=== PATIENT | male | born 1980 | race Caucasian/White ===

== ENCOUNTER 2020-09-24 09:58 | Emergency (ER) | payer OTHER ==
[2020-09-24 10:47] LABS: BASOPHIL 0.5 % (0-2); EOSINOPHIL 2.9 % (0-5); HCT 40.7 % (42.0-52.0); HGB 14.3 g/dl (13.2-18.0); LYMPHOCYTE 28.3 % (15-48); MCH 36.4 pg (25.0-31.0); MCHC 35.1 g/dL (32.0-36.0); MCV 103.6 fL (78.0-100.0); MONOCYTE 8.1 % (0-12); MPV 10.2 fL (6.0-9.5); NRBC 0; PLT 267 K/uL (150-400); RBC 3.93 M/uL (4.70-6.00); RDW 12.2 % (11.5-14.0); WBC 8.1 K/uL (4.0-10.5)
[2020-09-24 10:52] LABS: INR 1.05 (0.9-1.2); PTT 25.6 SECONDS (22.2-34.7)
[2020-09-24 10:53] LABS: ALBUMIN 4.2 g/dL (3.4-5.0); BILIRUBIN - TOTAL 0.7 mg/dL (0.2-1.0); BUN/CREAT RATIO (CALC) 18.5 RATIO; CREATININE 0.81 mg/dL (0.67-1.17); POTASSIUM 4.2 mmol/L (3.5-5.1); TOTAL PROTEIN 7.2 g/dL (6.4-8.2)
[2020-09-24] MEDS ORDERED: NAPROXEN500 MG PO (11:29)
== END 2020-09-24 11:40 | disposition home or self-care (01) ==
LOC: FER 09:58
PROVIDERS: Emergency Medicine
DX: R07.89 Other chest pain (principal); F17.210 Nicotine dependence, cigarettes, uncomplicated
CPT/HCPCS: 36415; 71045; 80053; 84484; 85025; 85610; 85730; 93005

== ENCOUNTER 2022-01-06 09:47 | Emergency (ER) | payer OTHER ==
[~2022-01-06 09:47] MED LIST: NAPROXEN500 MG PO
[2022-01-06 10:29] LABS: BASOPHIL 0.6 % (0-2); EOSINOPHIL 1.9 % (0-5); HCT 45.4 % (42.0-52.0); HGB 16.2 g/dl (13.2-18.0); LYMPHOCYTE 23.5 % (15-48); MCH 37.4 pg (25.0-31.0); MCHC 35.7 g/dL (32.0-36.0); MCV 104.8 fL (78.0-100.0); MONOCYTE 6.7 % (0-12); MPV 9.9 fL (6.0-9.5); NEUTROPHIL 67.2 % (41-80); NRBC 0; PLT 245 K/uL (150-400); RBC 4.33 M/uL (4.70-6.00)
[2022-01-06 10:41] LABS: INR 1.03 (0.9-1.2); PROTHROMBIN TIME 13.2 SECONDS (11.9-13.9); PTT 23.4 SECONDS (24.9-34.6)
[2022-01-06 10:50] LABS: ALBUMIN 4.4 g/dL (3.4-5.0); ALKALINE PHOSHATASE 101 U/L (46-116); ALT 62 U/L (16-63); AST 44 U/L (15-37); BILIRUBIN - TOTAL 1.2 mg/dL (0.2-1.0); BUN 8 mg/dL (7-18); BUN/CREAT RATIO (CALC) 9.9 RATIO; CHLORIDE 100 mmol/L (98-107); CO2 (BICARBONATE) 27 mmol/L (21-32); CREATININE 0.81 mg/dL (0.67-1.17); GLOBULIN (CALCULATION) 2.9 g/dL; GLUCOSE 97 mg/dL (74-106); POTASSIUM 3.7 mmol/L (3.5-5.1); TOTAL PROTEIN 7.3 g/dL (6.4-8.2)
== END 2022-01-06 11:55 | disposition home or self-care (01) ==
LOC: FER 09:47
PROVIDERS: Emergency Medicine
DX: K21.9 Gastro-esophageal reflux disease without esophagitis (principal); F17.210 Nicotine dependence, cigarettes, uncomplicated
CPT/HCPCS: 36415; 71045; 80053; 84484; 85025; 85610; 85730; 93005; J1885; Q0162